=== PATIENT | female | born 1975 | race Asian ===

== ENCOUNTER 2017-08-22 13:28 | Outpatient (CLI) | payer OTHER ==
[2017-08-22 15:08] LABS: PLATELET COUNT 419 K/uL (152-353)
[2017-08-22 15:10] LABS: POTASSIUM 4.1 mmol/L (3.6-5.2); SODIUM 135 mmol/L (136-145)
== END 2017-08-22 19:25 | disposition home or self-care (01) ==
LOC: LAB 13:28
PROVIDERS: Family Medicine
DX: F41.8 Other specified anxiety disorders (principal); K21.9 Gastro-esophageal reflux disease without esophagitis; R63.5 Abnormal weight gain; G47.09 Other insomnia; E55.9 Vitamin D deficiency, unspecified; E78.00 Pure hypercholesterolemia, unspecified
CPT/HCPCS: 80053; 80061; 81000; 82306; 82607; 82746; 83735; 84439; 84443; 84481; 85027

== ENCOUNTER 2019-10-04 13:40 | Outpatient (CLI) | payer OTHER | END 2019-10-04 21:32 | disposition home or self-care (01) | LOC: LABW 13:40 | DX: N89.8 Other specified noninflammatory disorders of vagina (principal); Z20.2 Contact with and (suspected) exposure to infections with a predominantly sexual mode of transmission; F41.8 Other specified anxiety disorders; G47.00 Insomnia, unspecified | CPT/HCPCS: 81000; 87490; 87590 ==

== ENCOUNTER 2020-01-13 14:00 | Outpatient (CLI) | payer OTHER | END 2020-01-13 22:02 | disposition home or self-care (01) | LOC: RAD 14:00 | DX: F41.8 Other specified anxiety disorders (principal); R10.9 Unspecified abdominal pain; K59.00 Constipation, unspecified ==

== ENCOUNTER 2020-03-16 10:36 | Outpatient (CLI) | payer OTHER | END 2020-03-16 19:07 | disposition home or self-care (01) | LOC: US 10:36 | DX: R10.9 Unspecified abdominal pain (principal); R53.83 Other fatigue ==

== ENCOUNTER 2022-03-25 12:19 | Outpatient (CLI) | payer OTHER ==
[2022-03-25 13:09] LABS: PLATELET COUNT 415 K/uL (152-353)
[2022-03-25 13:43] LABS: POTASSIUM 3.9 mmol/L (3.6-5.2)
== END 2022-03-25 18:48 | disposition home or self-care (01) ==
LOC: LABW 12:19
PROVIDERS: ATTEND Family Medicine
DX: R21 Rash and other nonspecific skin eruption (principal); D64.9 Anemia, unspecified; M54.89 Other dorsalgia; R63.4 Abnormal weight loss; F41.8 Other specified anxiety disorders; R73.9 Hyperglycemia, unspecified; E66.9 Obesity, unspecified; K21.9 Gastro-esophageal reflux disease without esophagitis
CPT/HCPCS: 36415; 80053; 80061; 81002; 82728; 83540; 83550; 83735; 84439; 84443; 85027

== ENCOUNTER 2023-07-23 08:23 | Outpatient (CLI) | payer OTHER | END 2023-07-23 19:56 | disposition home or self-care (01) | LOC: MAMMO 08:23 | PROVIDERS: ATTEND Internal Medicine | DX: Z12.31 Encounter for screening mammogram for malignant neoplasm of breast (principal) ==